=== PATIENT | female | born 1945 | race Caucasian/White ===

== ENCOUNTER 2016-05-15 15:59 | Emergency (ER) | payer MEDICARE ==
[2016-05-15 16:19] VITALS: BMI 32.3
[2016-05-15] MEDS ORDERED: OXYCODONE HCL 5 MG TABLET PO ONE (19:00)
--- NOTE | 2016-05-15 19:04 | EDPRACDOC ---
- General Chief Complaint: Fall Stated Complaint: FELL C/O CP PALE Time Seen by Provider: 05/15/16 18:55 - History of Present Illness Onset: HPI: PT STATES SHE WAS IN HER YARD, STATES HER FOOT GOT TANGLED IN [place] CAUSING HER TO FALL, LANDED ON LEFT SIDE, COMPLAINS OF SHARP PAIN IN LEFT RIBS, SHARP AND STABBING WORSE WITH COUGH AND DEEP BREATHING, PT STATES USING HER USUAL MORPHINE AND OXYCODONE WITHOUT RELIEF. NO LOC, NO HEADACHE, DIZZINESS, N/ V. Pain Severity: Reports: Severe Injuries/Pain Location: Reports: chest Reason for Fall: Reports: lost balance, tripped Loss of Consciousness: no loss of consciousness Modifying Factors: improves with: movement Associated Symptoms (Fall): Reports: denies symptoms Allergies/Adverse Reactions: Allergies No Known Allergies Allergy (Verified 05/15/16 16:18) Home Medications: Ambulatory Orders Albuterol Sulfate [Proair Hfa] 1 - 2 puff INH Q4H PRN 01/20/13 Atenolol [Tenormin] 50 mg PO DAILY 01/20/13 Esomeprazole Mag Trihydrate [Nexium] 40 mg PO DAILY 01/20/13 Levothyroxine [Synthroid, Levoxyl] 100 mcg PO DAILY 01/20/13 Atorvastatin [Lipitor 40 mg Tablet] 40 mg PO HS 07/21/13 Famotidine [Pepcid] 20 mg PO BID 07/21/13 Lisinopril [Zestril] 20 mg PO DAILY 07/21/13 Morphine Sulfate [Ms Contin] 30 mg PO BID 07/21/13 Gabapentin [Neurontin] 600 mg PO TID #90 tablet 07/23/13 Amlodipine [Norvasc] 10 mg PO DAILY 06/07/15 Glipizide [Glucotrol] 5 mg PO DAILY(ANANYA) 06/07/15 Hydroxyzine Pamoate [Vistaril] 25 mg PO DAILY PRN 06/07/15 Oxycodone Immediate Release [Oxycodone Immediate Release (OxyIR)] 5 mg PO QID PRN 06/07/15 Paroxetine HCl [Paxil] 40 mg PO QAM 06/07/15 Trazodone HCl [Desyrel] 50 mg PO QHS PRN 06/07/15 Aspirin (Enteric Coated) [Halfprin] 162 mg PO DAILY #60 tablet 06/11/15 Baclofen 10 mg PO QHS PRN 05/15/16 Clopidogrel Bisulfate [Plavix] 75 mg PO DAILY 05/15/16 Ibuprofen Tablet [Motrin] 800 mg PO TID PRN #30 tab 05/15/16 ED Past Medical History - History Reviewed Yes Nurses notes reviewed and agree except as marked - Patient Medical History Neurological History: Reports: Cerebrovascular Accident Cardiac History: Reports: Hypertension, Hypercholesterolemia Respiratory History: Reports: Asthma, Chronic Bronchitis GI/ History: Reports: Urinary Tract Infection, Gastroesophageal Reflux Musculoskeletal History: Reports: Arthritis, Osteoarthritis Psychological History: Reports: Depression, Anxiety. Denies: Substance Use Disorder Systemic History: Reports: Anemia, Diabetes, Hypothyroidism. Denies: Cancer Additional Past Medical History: CHRONIC BACK PAIN Surgical History: Reports: Tonsillectomy/Adnoidectomy - Family Medical History Reports: Hypertension, Diabetes, Cancer, Stroke, Cardiac Disorders - Social Medical History Smoking Status: Never smoker Social History: Denies: Substance Use Disorder ETOH: None Substance Abuse: None EDM Review of Systems - Review of Systems Constitutional: negative: Chills, Fever Eyes: negative: Blurred Vision, Double Vision Ears: negative: Drainage Throat: negative: Pain Nose: negative: Congestion, Discharge Respiratory: negative: Cough, Shortness of Breath, Wheezing Cardiovascular: negative: Chest Pain, Palpitations Gastrointestinal: negative: Diarrhea, Nausea, Pain, Vomiting Genitourinary: negative: Dysuria, Frequency Neurological: negative: Dizziness, Headache, Numbness, Weakness Musculoskeletal: Ribs Integumentary: Wound Allergic/Immunologic: No Symptoms Reported - Physical Exam Constitutional: Alert (Awake), No apparent distress Oriented to: Time, Person, Place Last recorded Vital Signs: Last Vital Signs Temp 98.5 F 05/15/16 16:13 Pulse 69 05/15/16 16:13 Resp 18 05/15/16 16:13 BP 139/62 05/15/16 16:13 Pulse Ox 94 05/15/16 16:13 Oxygen Pulse Oxygen Saturation 94 O2 Device Oxygen Flow Rate Fraction of Inspired Oxygen ( FIO2) - HEENT Head: Normal ( normocephalic) Eye Exam: Normal (PERRL, EOMI, Sclera white) Oropharynx: Normal (Pharynx:Moist without exudate,Gums-no swelling) Tympanic Membrane: Normal ENT EAC: Normal TMJ: Normal Nose: No Symptoms Reported (septum midline) Neck: Normal (FROM, trachea at midline) - Respiratory/Cardiovascular Respiratory: Normal - CTA (BBS clear to auscultation without adventitious sounds ) Cardiovascular: Normal (RRR without murmur, gallop or rub) - GI Auscultation: Normal (NABS) Palpation: Normal (Soft,No rebound or guarding, non distended) Tenderness: Non tender Gaitan's Sign: Negative - Musculoskeletal Back: Normal (Non-Tender) Extremities: Normal (Normal tone, Pulses 2+ No cyanosis or edema, FROM) Musculoskeletal Comment: CHEST WALL: TTP ANTERIOR AND LATERAL LEFT CHEST WALL, NO CREPITANCE OR SUBCUT EMPHYSEMA - Integumentary Skin: Warm, Dry, Other (MULTIPLE HEALING ABRASIONS TO KNUCKLES OF BOTH HANDS) Lymphatics: Normal (no adenopathy) - Neurologic Memory Impaired: Normal Motor Function: Normal (Normal tone, Pulses 2+ No cyanosis or edema, FROM) Cranial Nerve: Normal (CN II-X11 intact sensation, strength 5/5) Cerebellar: Normal Mood Description: Normal Perception: Normal ED Injury/Fall Exam - Physical Exam Head Injury: no evidence of injury Extremity Exam: no evidence of injury Skin: Warm, Dry - Cisco Coma Score Best Eye Response (Cisco): (4) open spontaneously Best Verbal Response (Alston): (5) oriented Best Motor Response (Alston): (6) obeys commands [place] Total: 15 - Differential Diagnosis Contusion, Fracture - Diagnostic Imaging LEFT RIBS W CXR Image interpreted by: Radiologist LEFT RIBS AND CHEST - 3+ VIEW COMPARISON: Chest radiograph 06/07/2015. FINDINGS: Stable cardiac and mediastinal contours. Heterogeneous opacities bilateral lower lobes. No pleural effusion or pneumothorax. Right glenohumeral joint degenerative changes. Evaluation of the ribs is limited secondary to positioning and body habitus. There is a nondisplaced fracture through the lateral left sixth rib. IMPRESSION: Nondisplaced lateral left sixth rib fracture. Basilar heterogeneous opacities favored to represent atelectasis. Decision Time to Discharge: 19:39 - Departure Disposition: Home Condition: Stable Final Diagnosis: LEFT 6TH RIB FRACTURE Accidental fall Qualifiers: Encounter type: initial encounter Qualified Code(s): W19.XXXA - Unspecified fall, initial encounter Instructions: RICE: Routine Care for Injuries, Rib Fracture (ED) Referrals: None,No Provider [Primary Care Provider] - One Week Prescriptions: New Ibuprofen Tablet [Motrin] 800 mg PO TID PRN #30 tab PRN Reason: Pain Continue Albuterol Sulfate [Proair Hfa] 1 - 2 puff INH Q4H PRN PRN Reason: Shortness Of Breath Levothyroxine [Synthroid, Levoxyl] 100 mcg PO DAILY Atenolol [Tenormin] 50 mg PO DAILY Esomeprazole Mag Trihydrate [Nexium] 40 mg PO DAILY Famotidine [Pepcid] 20 mg PO BID Morphine Sulfate [Ms Contin] 30 mg PO BID Atorvastatin [Lipitor 40 mg Tablet] 40 mg PO HS Lisinopril [Zestril] 20 mg PO DAILY Gabapentin [Neurontin] 600 mg PO TID #90 tablet Amlodipine [Norvasc] 10 mg PO DAILY Oxycodone Immediate Release [Oxycodone Immediate Release (OxyIR)] 5 mg PO QID PRN PRN Reason: Pain Paroxetine HCl [Paxil] 40 mg PO QAM Hydroxyzine Pamoate [Vistaril] 25 mg PO DAILY PRN PRN Reason: Anxiety Glipizide [Glucotrol] 5 mg PO DAILY(ANANYA) Trazodone HCl [Desyrel] 50 mg PO QHS PRN PRN Reason: Sleep Or Insomnia Aspirin (Enteric Coated) [Halfprin] 162 mg PO DAILY #60 tablet Clopidogrel Bisulfate [Plavix] 75 mg PO DAILY Baclofen 10 mg PO QHS PRN PRN Reason: Muscle Spasms Additional Instructions: REST, DRINK PLENTY OF FLUIDS, USE INCENTIVE SPIROMETER DIRECTED. RETURN TO THE ED FOR ANY WORSENING SYMPTOMS OR CONCERNS.
--- NOTE | 2016-05-15 19:34 | DIRPT ---
CLINICAL DATA: Patient with left anterior rib pain status post fall. EXAM: LEFT RIBS AND CHEST - 3+ VIEW COMPARISON: Chest radiograph 06/07/2015. FINDINGS: Stable cardiac and mediastinal contours. Heterogeneous opacities bilateral lower lobes. No pleural effusion or pneumothorax. Right glenohumeral joint degenerative changes. Evaluation of the ribs is limited secondary to positioning and body habitus. There is a nondisplaced fracture through the lateral left sixth rib. IMPRESSION: Nondisplaced lateral left sixth rib fracture. Basilar heterogeneous opacities favored to represent atelectasis. Electronically Signed By: Braden Cuba M.D. On: 05/15/2016 19:31
[2016-05-15 20:06] VITALS: TEMP 77
[2016-05-15 20:17] VITALS: BP 146/65; PULSE 67
== END 2016-05-15 20:15 | disposition home or self-care (01) ==
LOC: ED 15:59
DX: S22.32XA Fracture of one rib, left side, initial encounter for closed fracture (principal); W01.0XXA Fall on same level from slipping, tripping and stumbling without subsequent striking against object, initial encounter; Y93.89 Activity, other specified; Y92.007 Garden or yard of unspecified non-institutional (private) residence as the place of occurrence of the external cause
CPT/HCPCS: 71101; 99283; A9270; G0237; J3490